=== PATIENT | male | born 1970 | race Caucasian/White ===

== ENCOUNTER → 2016-12-23 | Outpatient (CLI) | payer BC ==
[~2016-12-23] MED LIST: ADVIL200 MG PO; COLACE100 MG PO; LIPITOR20 M1 PO; MOTRIN600 MG PO; NORCO 5-325 MG1 TAB PO; PEPCID20 MG PO; PERCOCET 5-3251 EACH PO; TYLENOL LI160 MG/5 M PO; TYLENOL325 MG PO; [UNRECOGNIZED DRUG - OTHER] PO
== END | disposition disaster alternative care site (69) ==
LOC: GRAD 09:38
DX: S12.100D Unspecified displaced fracture of second cervical vertebra, subsequent encounter for fracture with routine healing (principal); M43.12 Spondylolisthesis, cervical region; X58.XXXD Exposure to other specified factors, subsequent encounter

== ENCOUNTER → 2017-01-06 | Outpatient (CLI) | payer BC | END | disposition disaster alternative care site (69) | LOC: GRAD 08:48 | DX: Z47.89 Encounter for other orthopedic aftercare (principal); Z98.1 Arthrodesis status ==